=== PATIENT | male | born 1950 | race Caucasian/White ===

== ENCOUNTER 2017-06-12 23:32 | Inpatient (IN) ==
--- NOTE | 2017-06-12 23:39 | Emergency Department Note ---
Disposition Clinical Impression: Small bowel obstruction Disposition: Admitted As Inpatient Condition: Fair Time of Disposition: 00:38 Abdominal Pain HPI - General Chief Complaint: ED Abdominal Pain Stated Complaint: Small Bowel Obstruction Time Seen by Provider: 06/12/17 23:38 Source: patient, EMS Mode of arrival: EMS Nursing Notes Reviewed: Yes Vital Signs Reviewed: Yes - History of Present Illness HPI Narrative: 66-year-old male history of former smoker hypertension hyperlipidemia no previous abdominal surgeries presents with constipation and abdominal pain and distention for the last 2 days. Patient states his last bowel movement was 2 days ago patient states he had to have some pain he went to the [place] emergency department with a, small bowel instruction on his CAT scan physician transferred him to [facility] for surgical evaluation. An NG tube was placed that about 600 mL of bilious abdominal fluid. he denies hematochezia or melena. He states his pain is currently a 5 out of 10 for last few hours after the NG tube was placed. Pt Subjective Complaint: abdominal pain Onset (ago): day(s) (2) Consistency: intermittent Location: diffuse Pain Severity: moderate Pain Scale: 5 Quality: aching Radiation: none Improves with: nothing Worsens with: eating Associated symptoms: Reports: nausea, vomiting, constipation - Related Data Home Medications Medication Instructions Recorded Confirmed Aspirin [Lo-Dose Aspirin EC] 81 mg PO DAILY 09/14/16 06/12/17 Cholecalciferol (D-3) [Vitamin D] 4,000 unit PO DAILY 09/14/16 06/12/17 Lisinopril-HCTZ 20-12.5 [Prinzide 1 each PO DAILY 09/14/16 06/12/17 20-12.5] Lovastatin 40 mg PO HS 09/14/16 06/12/17 Methotrexate [Otrexup] 2.5 mg PO Q1W 09/14/16 06/12/17 amLODIPine [Norvasc] 10 mg PO DAILY 09/14/16 06/12/17 Allergies Allergy/AdvReac Type Severity Reaction Status Date / Time ranitidine [From Zantac] Allergy Hives Verified 06/12/17 23:39 Pneumococcal Vaccine AdvReac Fever Verified 06/12/17 23:39 All systems ED: reviewed and negative except as stated. Review of Systems: As Per HPI Constitutional: Denies: fever, chills Eyes: Denies: eye pain ENT ED: Denies: ear pain Cardiovascular: Denies: chest pain Respiratory: Denies: cough, dyspnea Gastrointestinal: Reports: abdominal pain, nausea, vomiting. Denies: diarrhea, hematemesis, melena, hematochezia Genitourinary: Denies: urgency, dysuria Musculoskeletal: Denies: back pain Integumentary: Denies: rash Neurological: Denies: headache Abdominal Pain PMH - Past Medical History Medical history: Reports: arthritis, COPD, hyperlipidemia, hypertension Male Surgical History: Reports: no surgical history Psychiatric history: Reports: no psych history - Social History Smoking status: Former smoker Alcohol use: Reports: none Drug use: Reports: none Physical Exam Constitutional: Middle-aged male with NG tube in place bilious contents the bedside vacuuming container vital signs stable Eyes: PERRLA, sclera anicteric ENT & Mouth: MM dry Neck: normal inspection, neck is supple Resp: CTA bilaterally, no resp distress CV: RRR, no m/g/r GI: normal inspection, soft, moderate distention, tenderness to palpation diffusely with no rigidity or guarding Neuro: A&O3, CNII-XII grossly intact, ESCOBAR Skin: on limited exam, skin intact with no rashes or lesions Course Course Narrative: 66-year-old male with small bowel obstruction transferred from [facility] I did call the general surgeon Dr. Reddy who agreed with management after reviewing CT scan finding lab results and exam the patient will continue NG decompression admission to medical service with surgical consult. - Consultations Consultation #1: Consult to Dr. Reddy will evaluate the patient agrees with management at this time will review CT scan continue NG decompression and by mouth hospitalist admission per surgeon recommendations after discussing the CT scan findings Vital Signs Temperature 98.0 F 06/12/17 23:39 Pulse Rate 92 06/12/17 23:39 Respiratory Rate 16 06/12/17 23:39 Blood Pressure 128/88 06/12/17 23:39 O2 Sat by Pulse Oximetry 93 06/12/17 23:39 Temperature 98.0 F 06/12/17 23:39 Pulse Rate 102 06/13/17 00:30 Respiratory Rate 18 06/13/17 00:30 Blood Pressure 139/91 06/13/17 00:30 O2 Sat by Pulse Oximetry 93 06/13/17 00:30 Oxygen Delivery Oxygen Delivery Room Air Abdominal Pain - Differential Diagnosis Differential Diagnosis: Likely: abdominal pain non-specific, diverticulitis, diverticulosis, ischemic bowel - Medical Records Medical records reviewed: Yes I reviewed the patient's medical records. - Lab Data Lab results reviewed: Yes I reviewed the patient's lab results. - Radiology Data Radiology results reviewed: Yes I reviewed the patient's radiology results. Attestation Statement - Attestation Attestation: I, Zhang Bridges MD, personally evaluated this patient and discussed their management with the resident physician. I reviewed the resident's note and agree with the documented findings, medical decision making, and plan of care. This patient was transferred from [facility] emergency department with a small bowel obstruction. Patient complained of nausea and vomiting and diarrhea that started on . He was seen at another facility Tuesday morning and given medication for nausea. The diarrhea has resolved and he has had no bowel movement for the past 2 days. Yesterday he developed increased abdominal distention and increased abdominal pain. Also developed vomiting. Workup tonight at [facility] emergency department revealed a small bowel obstruction in the central abdomen with concern for an internal hernia. An NG tube was placed and his symptoms have improved. On examination patient is a well-developed well-nourished male in no acute distress. He is alert and oriented 3. There is no cyanosis or diaphoresis. Breath sounds are clear and equal bilaterally. Heart regular rate and rhythm. Abdomen is distended with mild diffuse tenderness. Bowel sounds absent. The surgeon professor of education, Dr. Arnold, was consulted and recommended admission by the hospitalist and he will see the patient in the hospital. The hospitalist, Dr. Way, was consulted and accepted admission of the patient.
[2017-06-13] MEDS ORDERED: Ondansetron 4 MG/2 ML VIAL IVP PRN (03:08)
[2017-06-13] MEDS ORDERED: Naloxone 0.4 MG/ML INJ IVP PRN (03:27)
[2017-06-13] MEDS ORDERED: Potassium Chloride 20 MEQ, Lidocaine 1% 2 ML in D5% in Water 250 ML IVPB ONE (03:36)
[2017-06-13] MEDS ORDERED: Ipratropium/Albuterol Neb 3 ML IH PRN (03:39)
--- NOTE | 2017-06-13 03:45 | Internal Med History&Physical ---
Date of Encounter: 06/13/17 Time of Encounter: 03:00 Assessment and Plan (1) Hypertension Current visit: Yes Status: Acute Hold home medications because of nothing by mouth. Hydralazine IV as needed Qualifiers: Hypertension type: essential hypertension Qualified Code(s): I10 - Essential (primary) hypertension (2) COPD (chronic obstructive pulmonary disease) Current visit: Yes Status: Acute Patient currently has no wheezing. Place the DuoNeb when necessary. Oxygen as needed Qualifiers: COPD type: emphysema Emphysema type: unspecified Qualified Code(s): J43.9 - Emphysema, unspecified (3) Hypokalemia Current visit: Yes Status: Acute We will give IV potassium supplements (4) DVT prophylaxis Current visit: Yes Status: Acute EPCD. No heparin in case the patient needs surgery (5) Small bowel obstruction Current visit: Yes Status: Acute Probably due to internal hernia. Patient is still passing gas, consider partial small bowel obstruction. - Continue nothing by mouth, IV fluid, NG tube with intermittent low pressure suction for decompression. - Zofran IV when necessary for nausea - Close monitor patient - Surgical consult on case. Internal Medicine - H&P: HPI Chief complaint: Nausea and vomiting and abdominal distention Admitted From: Home Plans for Post Hospital Care: Home History of present illness: Mr. Ravi is a 66 year old male with history of hypertension, COPD, rheumatoid arthritis, presented to ER for nausea vomiting and abdominal distention. Patient said she has nausea vomiting and diarrhea since Tuesday. Patient went to urgent care and was treated with medication for nausea. Since yesterday, diarrhea stopped, patient still has nausea and vomiting, and has increased abdominal distention. There is no blood in the vomiting. Patient has no bowel movement since Tuesday. Still passing gas. In [facility] ER, abdominal is CT shows small bowel obstruction and possible internal hernia. Patient denies previous history of abdominal surgery. Patient was transferred to our ER for further management. Surgical consult was called by ER, surgical consult has reviewed the CT scan and recommend NG tube decompression and close monitoring. Patient was admitted for further management. Past Med Surg Social Fam HX - Past Medical History Medical history: arthritis, COPD, hyperlipidemia, hypertension Psychiatric history: no psych history - Past Surgical History Surgical History: no surgical history - Social History Smoking Status: Former smoker Smokeless Tobacco Status: No Alcohol use: none Drug use: none - Family History Mother History Unknown: Yes Internal Medicine - H&P: Meds Aspirin [Lo-Dose Aspirin EC] 81 mg PO DAILY 09/14/16 [History] Cholecalciferol (D-3) [Vitamin D] 4,000 unit PO DAILY 09/14/16 [History] Lisinopril-HCTZ 20-12.5 [Prinzide 20-12.5] 1 each PO DAILY 09/14/16 [History] Lovastatin 40 mg PO HS 09/14/16 [History] Methotrexate [Otrexup] 2.5 mg PO Q1W 09/14/16 [History] amLODIPine [Norvasc] 10 mg PO DAILY 09/14/16 [History] Metoprolol [Lopressor] 25 mg PO DAILY 06/13/17 [History] 3 Allergy/AdvReac Type Severity Reaction Status Date / Time ranitidine [From Zantac] Allergy Hives Verified 06/12/17 23:39 Pneumococcal Vaccine AdvReac Fever Verified 06/12/17 23:39 All Systems PM: A 10-system review of systems was performed and is negative for pertinent findings except as documented above in the HPI. - Constitutional Vitals: Temp Pulse Resp BP Pulse Ox 97.8 F 90 16 125/84 93 06/13/17 00:44 06/13/17 00:44 06/13/17 00:44 06/13/17 00:44 06/13/17 00:44 General appearance: Present: A&O X 3, no acute distress, answers questions appropriately - Head Head exam: Present: atraumatic, normocephalic - Eye Eye exam: Present: PERRL, conjuntiva pink, sclera anicteric Pupils: Present: PERRL - Neck Neck exam general surgery: Present: supple, trachea midline. Absent: lymphadenopathy - Respiratory Respiratory exam: Present: CTAB. Absent: accessory muscle use, rales, rhonchi, wheezes - Cardiovascular Cardiovascular exam: Present: RRR, +S1, +S2. Absent: diastolic murmur, gallop, rubs, systolic murmur - GI/Abdominal GI/Abdominal exam: Present: distended, normal bowel sounds, soft, tenderness ( Mild tenderness on the right lower quadrant without guarding or rebound), no peritoneal signs - Extremities Exam Extremities exam: Present: warm, radial pulses palpable and symmetrical. Absent : calf tenderness, cyanotic, pedal edema - Neurological Exam Neurological exam: Present: CN II-XII intact, oriented X3, no focal deficits. Absent: pronater drift, facial droop, speech deficit - Skin Skin exam: Present: dry, intact
[2017-06-13] MEDS: 0.9 % Sodium Chloride 1,000 ML IVC SCH ×2 (04:32→21:43)
--- NOTE | 2017-06-13 09:22 | General Surgery Consult Note ---
<Shaina Damon - Last Filed: 06/13/17 09:18> Date of Encounter: 06/13/17 Time of Encounter: 09:18 Assessment and Plan (1) Small bowel obstruction Current Visit: Yes Status: Acute CT abd/pelvis without contrast reviewed with Dr. Arnold (detailed below). Adhesions unlikely cause of SBO as patient has not had any surgeries. Pt reports colonoscopy in the last 5 years with polyps (records not available for review a this time, but are requested) and denies history of reported obstruction, changes in bowel habits other than as previously described, or S/S of G.I. bleed. Abdominal discomfort remains in lateral epigastrum and RLQ. Etiology obstruction vs internal hernia (no contrast was given for CT). His WBC is 12.7 and without bandemia. Plan: -abdominal x-ray for NG tube placement, if placement is ok, may give gastrograffin through NG for SBFT -continue supportive care and discomfort management -Chloraseptic at bedside so patiently self administer -NPO (may have 1/2 small cup of ice Q8H pending imaging results) -Further recommendations pending CT abdomen Pelvis w/o contrast CT abd/pelvis without contrast 06/12/2017: GI/Bowel: There multiple loops of central small bowel which show dilation with fluid and gas ; some feculent material is also present suggesting stasis. Associated engorgement of the mesenteric vasculature is well as a small amount of interloop fluid and mesenteric edema are evident. The dilated loops of small bowel show a concentric configuration. IMPRESSION: Moderate dilation of central small bowel loops with relative decompression of the distal ileum most compatible with small bowel obstruction. There is associated small amount of fluid and mesenteric edema. Given the somewhat concentric configuration of the dilated small bowel loops, internal hernia could be considered. Cholelithiasis. History of Present Illness Consult date: 06/12/17 (Dr. Yvon Arnold) Reason for consult: abdominal pain Requesting physician: Julisa Mejia History of present illness: Dave is a 66-year-old male with a past medical history of hypertension, HLP, rheumatoid arthritis, former smoker, COPD/emphysema, adrenal adenoma, and a lung nodule. He denies an abdominal surgical history. He presented on 06/12/2017 from [facility] with complaints of abdominal distention, abdominal pain, and constipation for the past 2 days. He underwent a CT of the abdomen and pelvis without contrast which noted moderate dilation of the central small bowel loops with relative decompression of the distal ileum most compatible with the small bowel obstruction. Given the concentration of the dilated small bowel loops and internal hernia is considered. His white blood cell count is mildly elevated at 12.3 and is without bandemia. An NG tube was placed and noted 600 ML's of bilious fluid return. Mr. Ravi reports feelings of nausea, vomiting, and diarrhea that started on . The diarrhea started as having stool noted then transitioned to watery liquid and no stool noted. After this change the nausea and vomiting worsened, he began having abdominal discomfort and bloating for which he presented to the urgent care. He was recommended to go to the emergency department at [place] and was subsequently transferred to us. He states since the NG tube was placed he does feel a little bit of abdominal discomfort improvement , improvement in the nausea, and has not vomited. He continues to endorse significant abdominal distention and discomfort in the mid-abdomen and right abdomen. He denies fever or chills. He denies headache, dizziness, generalized weakness. He denies chest pain or shortness of breath. He endorses nausea and vomiting that was green and in large amounts. He denies black, bloody, or tarry stool. He denies coffee ground or Romeo red-blooded emesis. He further denies a personal or family history of colon cancer. Past Med Surg Social Fam HX - Past Medical History Source: patient, old records reviewed Medical history: arthritis, COPD, hyperlipidemia, hypertension Psychiatric history: no psych history - Past Surgical History Surgical History: no surgical history - Social History Smoking Status: Former smoker Smokeless Tobacco Status: No Alcohol use: none Drug use: none - Family History Mother History Unknown: Yes Medications and Allergies Aspirin [Lo-Dose Aspirin EC] 81 mg PO DAILY 09/14/16 [History] Cholecalciferol (D-3) [Vitamin D] 4,000 unit PO DAILY 09/14/16 [History] Lovastatin 40 mg PO HS 09/14/16 [History] Methotrexate [Otrexup] 10 mg PO QWEEK 09/14/16 [History] amLODIPine [Norvasc] 10 mg PO DAILY 09/14/16 [History] Folic Acid 1 mg PO DAILY 06/13/17 [History] Metoprolol Succinate [Toprol Xl] 25 mg PO DAILY 06/13/17 [History] Umeclidinium Brm/Vilanterol Tr [Anoro Ellipta 62.5-25 Mcg INH] 1 puff IH DAILY 06/13/17 [History] 3 Allergy/AdvReac Type Severity Reaction Status Date / Time ranitidine [From Zantac] Allergy Hives Verified 06/12/17 23:39 Pneumococcal Vaccine AdvReac Fever Verified 06/12/17 23:39 Review of Systems All systems PM: reviewed and no additional remarkable complaints except as stated All systems PM: The remainder of the systems were reviewed and are negative General Surgery Exam Initial Vital Signs Temp Pulse Resp BP Pulse Ox 98.0 F 92 16 128/88 93 06/12/17 23:39 06/12/17 23:39 06/12/17 23:39 06/12/17 23:39 06/12/17 23:39 - General physical appearance well developed, well nourished, no distress, moderate pain - Eyes normal ocular movement - ENT atraumatic, normocephalic - Neck trachea midline, no venous distension - Respiratory normal expansion, normal respiratory effort, clear to auscultation - Cardiovascular Cardiovascular exam: Present: RRR, 15, 16 - Abdomen Abdomen general surgery: Present: tympanic, distended, tender. Absent: bowel sounds present (ABSENT) Abdominal Tenderness: Present: epigastic, RUQ, RLQ Hernia: Present: none - Integumentary Integumentary general surgery: Present: warm and dry, no abnormal pigmentation - Neurologic Present: CN 2-12 grossly intact, normal coordination, normal sensation - Musculoskeletal Present: normal gait, normal posture - Psychiatric Psychiatric general surgery: Present: A&Ox3, appropriate, oriented to person, oriented to place, oriented to time, speech is normal, memory intact Exam Initial Vital Signs Temp Pulse Resp BP Pulse Ox 98.0 F 92 16 128/88 93 06/12/17 23:39 06/12/17 23:39 06/12/17 23:39 06/12/17 23:39 06/12/17 23:39 Results - Labs All other labs normal. - Imaging CT scan - abdomen: report reviewed CT scan - pelvis: report reviewed Consult Discharge Plan - Plan Referrals: Marco Camejo DO [Primary Care Provider] - <Yvon Arnold - Last Filed: 06/13/17 16:47> Date of Encounter: 06/13/17 Review of Systems All systems PM: The remainder of the systems were reviewed and are negative General Surgery Exam Initial Vital Signs Temp Pulse Resp BP Pulse Ox 98.0 F 92 16 128/88 93 06/12/17 23:39 06/12/17 23:39 06/12/17 23:39 06/12/17 23:39 06/12/17 23:39 Exam Initial Vital Signs Temp Pulse Resp BP Pulse Ox 98.0 F 92 16 128/88 93 06/12/17 23:39 06/12/17 23:39 06/12/17 23:39 06/12/17 23:39 06/12/17 23:39 Results - Labs 06/13/17 08:39 06/13/17 08:39 Abnormal lab results Monocytes # 1.6 K/mcL (0.0-1.3) H 06/13/17 08:39 Glucose 127 mg/dL (70-105) H 06/13/17 08:39 Calcium 8.4 mg/dL (8.6-10.3) L 06/13/17 08:39 Diabetes panel 06/13/17 Range/Units 08:39 Sodium 137 (136-145) mEq/L Potassium 3.7 (3.5-5.1) mEq/L Chloride 100 (98-107) mEq/L Carbon Dioxide 27 (23-29) mEq/L BUN 22 (8-23) mg/dL Creatinine 0.89 (0.70-1.30) mg/dL Glucose 127 H (70-105) mg/dL Calcium 8.4 L (8.6-10.3) mg/dL Calcium panel 06/13/17 Range/Units 08:39 Calcium 8.4 L (8.6-10.3) mg/dL Pituitary panel 06/13/17 Range/Units 08:39 Sodium 137 (136-145) mEq/L Potassium 3.7 (3.5-5.1) mEq/L Chloride 100 (98-107) mEq/L Carbon Dioxide 27 (23-29) mEq/L BUN 22 (8-23) mg/dL Creatinine 0.89 (0.70-1.30) mg/dL Glucose 127 H (70-105) mg/dL Calcium 8.4 L (8.6-10.3) mg/dL Adrenal panel 06/13/17 Range/Units 08:39 Sodium 137 (136-145) mEq/L Potassium 3.7 (3.5-5.1) mEq/L Chloride 100 (98-107) mEq/L Carbon Dioxide 27 (23-29) mEq/L BUN 22 (8-23) mg/dL Creatinine 0.89 (0.70-1.30) mg/dL Glucose 127 H (70-105) mg/dL Calcium 8.4 L (8.6-10.3) mg/dL All other labs normal. - Attending Attestation I have personally seen and examined the patient. I have reviewed pertinent labs , imaging, progress notes, including this one. I agree with the above assessment and plan and wish to include the following... 66M no history of surgeries, no hernias appreciated, no history inflammatory or infectious processes who presents with an SBO; contrast studies demonstrate no progression of constrast past what looks like jejunum. no peritoneal on exam; discussed with patient the need for surgery; will plan for diag lap with poss ex lap tomorrow; patient is already risk stratified by cardiology
[2017-06-13] MEDS ORDERED: Chloraseptic Spray 177 ML BOTTLE MM PRN (09:35)
[2017-06-13] MEDS ORDERED: Ketorolac 15 MG/ML VIAL IVP PRN (09:36)
[2017-06-13] MEDS ORDERED: *HR* Promethazine 25 MG/ML VIAL IVP PRN (09:38)
[2017-06-13 09:44] LABS: BUN/Creatinine Ratio 25 (6-26); Blood Urea Nitrogen 22 mg/dL (8-23); Calcium 8.4 mg/dL (8.6-10.3); Carbon Dioxide 27 mEq/L (23-29); Chloride 100 mEq/L (98-107); Glucose 127 mg/dL (70-105); Magnesium 2.2 mg/dL (1.6-2.6); Osmolality,Calculated 289 (280-300); Potassium 3.7 mEq/L (3.5-5.1); Sodium 137 mEq/L (136-145); eGFR For African Americans > 60 (> 60); eGFR For Non-African Americans > 60 (> 60)
[2017-06-13 10:31] LABS: Basophils % 0.2 %; Hematocrit 48.6 % (37.5-50.1); Hemoglobin 16.9 g/dL (12.9-16.9); Immature Granulocytes % 0.3 % (0-4); Lymphocytes # 1.8 K/mcL (0.6-4.6); Mean Corpuscular HGB Conc 34.8 g/dL (31.6-35.5); Mean Corpuscular Hemoglobin 31.5 pg (28.0-33.3); Mean Corpuscular Volume 90.7 fL (83.0-100.0); Mean Platelet Volume 10.6 fL (9.4-12.4); Monocytes # 1.6 K/mcL (0.0-1.3); Neutrophils # 6.5 K/mcL (1.6-8.9); Platelet Count 249 K/mcL (140-400); Red Blood Count 5.36 M/mcL (4.19-5.50); Red Cell Distribution Width 12.9 % (11.5-14.5); Segmented Neutrophils % 65.5 %
[2017-06-13] MEDS: Ondansetron 4 MG/2 ML VIAL IVP SCH ×3 (13:25→21:41)
[2017-06-13] MEDS: Acetaminophen IV 500 MG/50 ML INFUS..BTL IVPB SCH ×3 (13:25→21:42)
--- NOTE | 2017-06-13 14:36 | Event Note ---
Date of Encounter: 06/13/17 Time of Encounter: 14:34 Patient actively vomiting despite Zofran and Phenergan administration. His abdomen is more distended than this a.m. NG tube was returned to suction with immediate return of 1 L bilious material. Patient states nausea and abdominal discomfort is resolved. He did return his NG to clamp for his final picture at 3 PM today. Spoke with Mahnaz Petty CNP who will provide cardiovascular risk stratification in light of possibility of surgical intervention. Reviewed above with Dr. Arnold.
--- NOTE | 2017-06-13 14:47 | Internal Med Progress Note ---
Date of Encounter: 06/13/17 Time of Encounter: 14:44 - Assessment and plan (1) Small bowel obstruction Current Visit: Yes Status: Acute Assessment and plan: Patient is in the midst of a small bowel follow-through. Discussed with surgical service and depending on amount of flow through will depend on the surgical plan. If completely blocked will proceed with intervention today. If not will proceed with surgery tomorrow. Defer to surgical service view timing and necessity NG tube replaced the suction as patient was vomiting and very nauseated with it clamped. Remains nothing by mouth and continue IV fluids as ordered. (2) Preop cardiovascular exam Current Visit: Yes Status: Acute Assessment and plan: *Evaluate the patient for preop cardiac risk stratification. Patient with 0 Alex revised cardiac risk factors. No known CAD or prior ischemic evaluation/ workup. At home can carry out activities of daily living greater than 4 mets We will obtain an EKG and chest x-ray, if unremarkable okay to proceed to surgery with a cardiac risk assessment score of 0.4% per the Alex revised cardiac risk index (3) COPD (chronic obstructive pulmonary disease) Current Visit: Yes Status: Chronic Assessment and plan: Patient with no wheezing. Continue duo nebs when necessary. Oxygen as needed. Patient is currently on room air Qualifiers: COPD type: emphysema Emphysema type: unspecified Qualified Code(s): J43.9 - Emphysema, unspecified (4) Hypertension Current Visit: Yes Status: Acute Assessment and plan: Blood pressure is stable Qualifiers: Hypertension type: essential hypertension Qualified Code(s): I10 - Essential (primary) hypertension (5) Hypokalemia Current Visit: Yes Status: Resolved Assessment and plan: replaced and normalized (6) DVT prophylaxis Current Visit: Yes Status: Acute Assessment and plan: SCDs, no anticoagulation secondary to possible surgery - Subjective Interval history: Patient is sitting up in the bed with his NG tube clamped. He is uncomfortable and has become nauseated. He is in the midst of a small bowel follow-through and has one more film for completion. He denies chest pain, shortness of breath , fever, chills, diarrhea or constipation. He does have some left-sided abdominal pain that radiates across his lower abdomen. He states he has never had a cardiac ischemic evaluation including heart catheter or stress test. He states before this illness he was able to perform pretty much any activity that he wanted to at home. Sometimes he is limited by his COPD be slows down a bit and he is able to complete the activity. He states he is a pretty healthy alea. - Constitutional Vitals: Temp Pulse Resp BP Pulse Ox 97.8 F 100 16 107/74 93 06/13/17 07:20 06/13/17 07:20 06/13/17 07:20 06/13/17 07:20 06/13/17 07:20 General appearance: Present: cooperative, mild distress, A&O X 3, pleasant, no acute distress, answers questions appropriately - Head Head exam: Present: atraumatic, normocephalic - Eye Eye exam: Present: PERRL, conjuntiva pink, sclera anicteric Pupils: Present: PERRL - Neck Neck exam general surgery: Present: supple, trachea midline. Absent: lymphadenopathy - Respiratory Respiratory exam: Present: CTAB. Absent: accessory muscle use, rales, rhonchi, wheezes - Cardiovascular Cardiovascular exam: Present: RRR, +S1, +S2. Absent: diastolic murmur, gallop, rubs, systolic murmur - GI/Abdominal GI/Abdominal exam: Present: diminished bowel sounds, firm, tenderness. Absent: distended Additional comments: NG tube is clamped secondary to contrast administered, had been draining a tannish clear liquid. - Extremities Exam Extremities exam: Present: warm, radial pulses palpable and symmetrical. Absent : calf tenderness, cyanotic, pedal edema - Neurological Exam Neurological exam: Present: alert, CN II-XII intact, oriented X3, no focal deficits. Absent: pronater drift, facial droop, speech deficit - Skin Skin exam: Present: dry, intact, normal color, warm Internal Medicine: Result - Labs CBC & Chem 7: 06/13/17 08:39 06/13/17 08:39 Labs: Short CBC 06/13/17 Range/Units 08:39 WBC 9.9 (4.3-11.1) K/mcL Hgb 16.9 (12.9-16.9) g/dL Hct 48.6 (37.5-50.1) % Plt Count 249 (140-400) K/mcL Neutrophils # 6.5 (1.6-8.9) K/mcL BMP 06/13/17 08:39 Sodium 137 Potassium 3.7 Chloride 100 Carbon Dioxide 27 BUN 22 Creatinine 0.89 Glucose 127 H Calcium 8.4 L - Impressions Impressions Abdomen X-Ray 06/13/17 09:34 IMPRESSION: Recommend advancing NG tube Findings consistent with bowel obstruction D/ / 06/13/2017 11:03:50 Reddy Rush MD / [facility] Interpreting Provider: Reddy Rush MD Consult Discharge Plan - Plan Referrals: Marco Camejo DO [Primary Care Provider] -
[2017-06-13] MEDS: Pantoprazole 40 MG VIAL IVP SCH (16:43)
--- NOTE | 2017-06-13 21:14 | Anesthesia Evaluation PreOp ---
Date of Encounter: 06/13/17 Time of Encounter: 21:12 - Past History Planned Operation: Expl Lap, possible Small Bowel Resection Cardiac History: HTN (maintained on Lisinopril-Hctz, Norvasc, Metoprolol), Hyperlipidemia (maintained on Lovastatin) Pulmonary History: Former smoker (quit 15yrs ago), COPD (maintained on Anoro Ellipta, Ventolin) LEAD COOK History: Denies Any Significant HX Other Medical History: Hepatic (fatty liver), Other (RA maintained on Methotrexate) Anesthesia History: Past Anesthesia (No prior GA) Alcohol Use: none Drug use: none Medications and Allergies Aspirin [Lo-Dose Aspirin EC] 81 mg PO DAILY 09/14/16 [History] Cholecalciferol (D-3) [Vitamin D] 4,000 unit PO DAILY 09/14/16 [History] Lovastatin 40 mg PO HS 09/14/16 [History] Methotrexate [Otrexup] 10 mg PO QWEEK 09/14/16 [History] amLODIPine [Norvasc] 10 mg PO DAILY 09/14/16 [History] Folic Acid 1 mg PO DAILY 06/13/17 [History] Metoprolol Succinate [Toprol Xl] 25 mg PO DAILY 06/13/17 [History] Umeclidinium Brm/Vilanterol Tr [Anoro Ellipta 62.5-25 Mcg INH] 1 puff IH DAILY 06/13/17 [History] 3 Allergy/AdvReac Type Severity Reaction Status Date / Time ranitidine [From Zantac] Allergy Hives Verified 06/12/17 23:39 Pneumococcal Vaccine AdvReac Fever Verified 06/12/17 23:39 - Meds/Allergy Pre-op Review Medications Reviewed: Yes Allergies Reviewed: Yes Beta Blockers on Current Med List: Yes (Metoprolol) If Beta Blockers taken, Date/Time (Last Dose taken): None this hospitalization Anesthesia Results - Labs 06/13/17 08:39 06/13/17 08:39 Laboratory Results WBC 9.9 K/mcL (4.3-11.1) 06/13/17 08:39 RBC 5.36 M/mcL (4.19-5.50) 06/13/17 08:39 Hgb 16.9 g/dL (12.9-16.9) 06/13/17 08:39 Hct 48.6 % (37.5-50.1) 06/13/17 08:39 MCV 90.7 fL (83.0-100.0) 06/13/17 08:39 MCH 31.5 pg (28.0-33.3) 06/13/17 08:39 MCHC 34.8 g/dL (31.6-35.5) 06/13/17 08:39 RDW 12.9 % (11.5-14.5) 06/13/17 08:39 Plt Count 249 K/mcL (140-400) 06/13/17 08:39 MPV 10.6 fL (9.4-12.4) 06/13/17 08:39 Immature Gran % 0.3 % (0-4) 06/13/17 08:39 Seg Neutrophils % 65.5 % 06/13/17 08:39 Lymphocytes % 18.0 % 06/13/17 08:39 Monocytes % 16.0 % 06/13/17 08:39 Eosinophils % 0.0 % 06/13/17 08:39 Basophils % 0.2 % 06/13/17 08:39 Neutrophils # 6.5 K/mcL (1.6-8.9) 06/13/17 08:39 Lymphocytes # 1.8 K/mcL (0.6-4.6) 06/13/17 08:39 Monocytes # 1.6 K/mcL (0.0-1.3) H 06/13/17 08:39 Eosinophils # 0.0 K/mcL (0.0-0.6) 06/13/17 08:39 Basophils # 0.0 K/mcL (0.0-0.2) 06/13/17 08:39 Sodium 137 mEq/L (136-145) 06/13/17 08:39 Potassium 3.7 mEq/L (3.5-5.1) 06/13/17 08:39 Chloride 100 mEq/L (98-107) 06/13/17 08:39 Carbon Dioxide 27 mEq/L (23-29) 06/13/17 08:39 BUN 22 mg/dL (8-23) 06/13/17 08:39 Creatinine 0.89 mg/dL (0.70-1.30) 06/13/17 08:39 Est GFR ( Amer) > 60 (> 60) 06/13/17 08:39 Est GFR (Non-Af Amer) > 60 (> 60) 06/13/17 08:39 BUN/Creatinine Ratio 25 (6-26) 06/13/17 08:39 Glucose 127 mg/dL (70-105) H 06/13/17 08:39 POC Glucose 128 (58-89) H 06/13/17 19:09 Calculated Osmolality 289 (280-300) 06/13/17 08:39 Calcium 8.4 mg/dL (8.6-10.3) L 06/13/17 08:39 Magnesium 2.2 mg/dL (1.6-2.6) 06/13/17 08:39 Carcinoembryonic Ag 4.3 ng/mL (Less than 5.0) 06/13/17 17:41 Impressions Abdomen X-Ray 06/13/17 09:34 IMPRESSION: Recommend advancing NG tube Findings consistent with bowel obstruction D/ / 06/13/2017 11:03:50 Reddy Rush MD / [email or web address] Interpreting Provider: Reddy Rush MD Chest X-Ray 06/13/17 14:39 IMPRESSION: 1. Shallow inspiration and mild left basilar atelectasis. 2. Tip and side port of the enteric tube likely in the gastric lumen. D/ / Myles Villegas MD / Myles Villegas MD Interpreting Provider: Myles Villegas MD Anesthesia Exam Vital Signs Temp Pulse Resp BP Pulse Ox 06/13/17 19:06 98.5 F 105 16 118/83 92 06/13/17 14:44 97.5 F L 104 15 119/77 93 06/13/17 07:20 97.8 F 100 16 107/74 93 06/13/17 03:52 98.2 F 104 16 117/78 92 06/13/17 00:44 97.8 F 90 16 125/84 93 06/13/17 00:30 102 18 139/91 93 06/12/17 23:39 98.0 F 92 16 128/88 93 Intake and Output 06/13/17 06/13/17 06/13/17 07:59 15:59 23:59 Intake Total 0 / 0 0 / 0 Output Total 750 / 750 1000 / 1000 1100 / 1100 Balance -750 / -750 -1000 / -1000 -1100 / -1100 Intake: Oral 0 / 0 0 / 0 Output: Urine 350 / 350 Gastric Tube Lavage Amount 0 / 0 1000 / 1000 Right Nare 0 / 0 1000 / 1000 Gastric Drainage 400 / 400 1100 / 1100 Other: Meal Lunch NPO Weight 98.566 kg Blood Glucose* 155 128 Patient Weight 06/13/17 23:59 Weight 98.566 kg Height: 5'8" Weight: 217# BMI = 33 NPO (# of Hours): MNoc - HEENT Pupil (Motor): Pupils equal, EOMI Mallampati: II Teeth: Missing, Poor dentition (mulitple cracked & broken pre-molars/molars) Oral Opening: Greater than 3 - LEAD COOK LOC: Oriented LEAD COOK Motor: Normal RUE, Normal LUE, Normal RLE, Normal LLE, Normal Face LEAD COOK Sensory: Normal: RUE, LUE, RLE, LLE, Face - Cardiac Rhythm: Regular Murmur: None - Pulmonary Breath Sounds: bilateral Clear Respiratory Effort: Symmetrical Anesthesia Assess/Plan ASA Score: 3 (HTN, Chol, COPD, Obesity, Small Bowel Obstruction) Modified Marielena Scale for Level of Consciousness: Cooperative, oriented, and tranquil Anesthetic Plan: General Monitoring Plan: Standard Monitors Recovery Plan: PACU Anes Supervising Prov Stmt: Pt seen/evaluated, R&B discussed questions answered and consent obtained. Estelita Grier MD
[2017-06-14] MEDS: Ondansetron 4 MG/2 ML VIAL IVP SCH ×6 (00:02→20:43)
[2017-06-14] MEDS: Acetaminophen IV 500 MG/50 ML INFUS..BTL IVPB SCH ×4 (04:01→20:53)
[2017-06-14 05:49] LABS: Basophils % 0.5 %; Eosinophils % 0.1 %; Hematocrit 46.9 % (37.5-50.1); Hemoglobin 15.9 g/dL (12.9-16.9); Immature Granulocytes % 0.2 % (0-4); Lymphocytes # 2.1 K/mcL (0.6-4.6); Lymphocytes % 24.4 %; Mean Corpuscular HGB Conc 33.9 g/dL (31.6-35.5); Mean Corpuscular Hemoglobin 31.3 pg (28.0-33.3); Mean Corpuscular Volume 92.3 fL (83.0-100.0); Mean Platelet Volume 10.5 fL (9.4-12.4); Monocytes # 1.5 K/mcL (0.0-1.3); Monocytes % 17.4 %; Neutrophils # 4.8 K/mcL (1.6-8.9); Platelet Count 268 K/mcL (140-400); Red Blood Count 5.08 M/mcL (4.19-5.50); Red Cell Distribution Width 12.9 % (11.5-14.5); Segmented Neutrophils % 57.4 %
[2017-06-14 06:07] LABS: BUN/Creatinine Ratio 36 (6-26); Blood Urea Nitrogen 34 mg/dL (8-23); Calcium 8.5 mg/dL (8.6-10.3); Carbon Dioxide 27 mEq/L (23-29); Chloride 104 mEq/L (98-107); Glucose 120 mg/dL (70-105); Osmolality,Calculated 299 (280-300); Potassium 3.3 mEq/L (3.5-5.1); Sodium 140 mEq/L (136-145); eGFR For African Americans > 60 (> 60); eGFR For Non-African Americans > 60 (> 60)
[2017-06-14] MEDS: Pantoprazole 40 MG VIAL IVP SCH ×2 (06:09→16:10)
[2017-06-14] MEDS ORDERED: Potassium Chloride 20 MEQ, Lidocaine 1% 2 ML in D5% in Water 250 ML IVPB ONE (07:01)
--- NOTE | 2017-06-14 10:49 | Internal Med Progress Note ---
Date of Encounter: 06/14/17 Time of Encounter: 10:46 - Assessment and plan (1) DVT prophylaxis Current Visit: Yes Status: Acute Assessment and plan: SCDs, no anticoagulation secondary to possible surgery (2) Hypertension Current Visit: Yes Status: Chronic Assessment and plan: Blood pressure is stable, continue current medications. Resume home medications when Patient is tolerating orally. Qualifiers: Hypertension type: essential hypertension Qualified Code(s): I10 - Essential (primary) hypertension (3) Preop cardiovascular exam Current Visit: Yes Status: Acute Assessment and plan: Patient with 0 Alex revised cardiac risk factors. No known CAD or prior ischemic evaluation/workup. At home can carry out activities of daily living greater than 4 mets CXR unremarkable okay to proceed to surgery with a cardiac risk assessment score of 0.4% per the Alex revised cardiac risk index (4) Small bowel obstruction Current Visit: Yes Status: Acute Assessment and plan: Continue IVF, NG ube, surgery is following continue antibiotics for surgery today (5) COPD (chronic obstructive pulmonary disease) Current Visit: Yes Status: Chronic Assessment and plan: Patient with no wheezing. Continue duo nebs when necessary. Oxygen as needed. Patient is currently on room air Qualifiers: COPD type: emphysema Emphysema type: unspecified Qualified Code(s): J43.9 - Emphysema, unspecified (6) Hypokalemia Current Visit: Yes Status: Acute Assessment and plan: K 3.3 today, replaced , continue to monitor - Subjective Interval history: Seen and evaluated at the bedside with family members. Denies new complaints. He does have a slight sore throat. He is planned for surgery today. - Constitutional Vitals: Temp Pulse Resp BP Pulse Ox 98.4 F 96 18 132/79 94 06/14/17 07:18 06/14/17 07:18 06/14/17 07:18 06/14/17 07:18 06/14/17 07:18 General appearance: Present: cooperative, A&O X 3, pleasant, no acute distress - Head Head exam: Present: atraumatic, normocephalic - Eye Eye exam: Present: PERRL, conjuntiva pink, sclera anicteric Pupils: Present: PERRL - Neck Neck exam general surgery: Present: supple, trachea midline. Absent: lymphadenopathy Additional comments: NG tube draining greenish fluid. - Respiratory Respiratory exam: Present: CTAB. Absent: accessory muscle use, rales, rhonchi, wheezes - Cardiovascular Cardiovascular exam: Present: RRR, +S1, +S2. Absent: diastolic murmur, gallop, rubs, systolic murmur - GI/Abdominal GI/Abdominal exam: Present: distended, hypoactive bowel sounds, tenderness, no peritoneal signs - Extremities Exam Extremities exam: Present: warm, radial pulses palpable and symmetrical. Absent : calf tenderness, cyanotic, pedal edema - Neurological Exam Neurological exam: Present: alert, CN II-XII intact, oriented X3, no focal deficits. Absent: pronater drift, facial droop, speech deficit - Skin Skin exam: Present: dry, intact Internal Medicine: Result - Labs CBC & Chem 7: 06/14/17 05:06 06/14/17 05:06 Labs: Short CBC 06/14/17 Range/Units 05:06 WBC 8.4 (4.3-11.1) K/mcL Hgb 15.9 (12.9-16.9) g/dL Hct 46.9 (37.5-50.1) % Plt Count 268 (140-400) K/mcL Neutrophils # 4.8 (1.6-8.9) K/mcL BMP 06/14/17 05:06 Sodium 140 Potassium 3.3 L Chloride 104 Carbon Dioxide 27 BUN 34 H Creatinine 0.94 Glucose 120 H Calcium 8.5 L - Impressions Impressions Abdomen X-Ray 06/13/17 09:34 IMPRESSION: Recommend advancing NG tube Findings consistent with bowel obstruction D/ / 06/13/2017 11:03:50 Reddy Rush MD / [facility] Interpreting Provider: Reddy Rush MD Chest X-Ray 06/13/17 14:39 IMPRESSION: 1. Shallow inspiration and mild left basilar atelectasis. 2. Tip and side port of the enteric tube likely in the gastric lumen. D/ / Myles Villegas MD / Myles Villegas MD Interpreting Provider: Myles Villegas MD Consult Discharge Plan - Plan Referrals: Marco Camejo DO [Primary Care Provider] -
--- NOTE | 2017-06-14 17:28 | Electrocardiograph Report ---
[place] [id number] Test Date: 2017-06-14 Pat Name: Dave Ravi Department: 115 Room: 3A44 Gender: M Shuttle Inspector: [id number] 1950 Requested By: Shaina Damon Order Number: [id number] Reading MD: Connie Mcqueen Measurements Intervals [place] Rate: 95 P: -1 [place]: 143 QRS: -30 QRSD: 105 T: -4 QT: 370 QTc: 422 Interpretive Statements SINUS RHYTHM WITH OCCASIONAL VENTRICULAR PREMATURE COMPLEXES POSSIBLE ANTERIOR MYOCARDIAL INFARCTION, PROBABLY OLD Electronically Signed On 06-14-2017 17:26:25 EST by Connie Mcqueen
[2017-06-14] MEDS: D5% in 0.45% NACL w KCl 20 MEQ/1,000 ML MLS IVC SCH (20:42)
[2017-06-15] MEDS: Ondansetron 4 MG/2 ML VIAL IVP SCH ×3 (00:06→08:12)
[2017-06-15] MEDS: Acetaminophen IV 500 MG/50 ML INFUS..BTL IVPB SCH ×2 (03:33→08:14)
[2017-06-15 05:30] LABS: Basophils # 0.1 K/mcL (0.0-0.2); Basophils % 0.7 %; Eosinophils # 0.2 K/mcL (0.0-0.6); Eosinophils % 2.1 %; Hematocrit 41.3 % (37.5-50.1); Hemoglobin 13.9 g/dL (12.9-16.9); Immature Granulocytes % 0.9 % (0-4); Lymphocytes # 1.9 K/mcL (0.6-4.6); Lymphocytes % 25.4 %; Mean Corpuscular HGB Conc 33.7 g/dL (31.6-35.5); Mean Corpuscular Hemoglobin 31.2 pg (28.0-33.3); Mean Corpuscular Volume 92.6 fL (83.0-100.0); Monocytes # 1.1 K/mcL (0.0-1.3); Monocytes % 14.8 %; Neutrophils # 4.2 K/mcL (1.6-8.9); Platelet Count 247 K/mcL (140-400); Red Blood Count 4.46 M/mcL (4.19-5.50); Segmented Neutrophils % 56.1 %
[2017-06-15 05:51] LABS: BUN/Creatinine Ratio 26 (6-26); Blood Urea Nitrogen 23 mg/dL (8-23); Calcium 7.9 mg/dL (8.6-10.3); Carbon Dioxide 24 mEq/L (23-29); Chloride 107 mEq/L (98-107); Glucose 113 mg/dL (70-105); Osmolality,Calculated 294 (280-300); Potassium 3.4 mEq/L (3.5-5.1); Sodium 140 mEq/L (136-145); eGFR For African Americans > 60 (> 60); eGFR For Non-African Americans > 60 (> 60)
[2017-06-15] MEDS: Pantoprazole 40 MG VIAL IVP SCH ×2 (06:22→17:30)
[2017-06-15] MEDS: D5% in 0.45% NACL w KCl 20 MEQ/1,000 ML MLS IVC SCH (06:22)
--- NOTE | 2017-06-15 09:46 | Internal Med Progress Note ---
Date of Encounter: 06/15/17 Time of Encounter: 09:45 - Assessment and plan (1) DVT prophylaxis Current Visit: Yes Status: Acute Assessment and plan: SCDs, resume SQ heparin, ambulate tid (2) Hypertension Current Visit: Yes Status: Chronic Assessment and plan: Blood pressure is stable, resume home meds Qualifiers: Hypertension type: essential hypertension Qualified Code(s): I10 - Essential (primary) hypertension (3) Preop cardiovascular exam Current Visit: Yes Status: Acute Assessment and plan: Patient with 0 Alex revised cardiac risk factors. No known CAD or prior ischemic evaluation/workup. At home can carry out activities of daily living greater than 4 mets CXR unremarkable okay to proceed to surgery with a cardiac risk assessment score of 0.4% per the Alex revised cardiac risk index Surgery on hold for now (4) Small bowel obstruction Current Visit: Yes Status: Acute Assessment and plan: Continue IVF, Improving D/C IVF continue antibiotics per surgery, SBFU shows improvement, patient is being fed (5) COPD (chronic obstructive pulmonary disease) Current Visit: Yes Status: Chronic Assessment and plan: Patient with no wheezing. Continue duo nebs when necessary. Oxygen as needed. Patient is currently on room air Qualifiers: COPD type: emphysema Emphysema type: unspecified Qualified Code(s): J43.9 - Emphysema, unspecified (6) Hypokalemia Current Visit: Yes Status: Acute Assessment and plan: K 3.4 today, replaced , continue to monitor - Subjective Interval history: Seen and evaluated at the bedside with family members. Denies new complaints. SBFU shows SBO is partial Repeat Abd CT also noted-partial SBO Surgery has started patient on clear He has no new complains - Constitutional Vitals: Temp Pulse Resp BP Pulse Ox 99.3 F 88 18 114/75 93 06/15/17 07:00 06/15/17 07:00 06/15/17 07:00 06/15/17 07:00 06/15/17 07:00 General appearance: Present: cooperative, A&O X 3, pleasant, no acute distress - Head Head exam: Present: atraumatic, normocephalic - Eye Eye exam: Present: PERRL, conjuntiva pink, sclera anicteric Pupils: Present: PERRL - Neck Neck exam general surgery: Present: supple, trachea midline. Absent: lymphadenopathy - Respiratory Respiratory exam: Present: CTAB. Absent: accessory muscle use, rales, rhonchi, wheezes - Cardiovascular Cardiovascular exam: Present: RRR, +S1, +S2. Absent: diastolic murmur, gallop, rubs, systolic murmur - GI/Abdominal GI/Abdominal exam: Present: normal bowel sounds, soft, no peritoneal signs. Absent: distended, tenderness - Extremities Exam Extremities exam: Present: warm, radial pulses palpable and symmetrical. Absent : calf tenderness, cyanotic, pedal edema - Neurological Exam Neurological exam: Present: alert, CN II-XII intact, oriented X3, no focal deficits. Absent: pronater drift, facial droop, speech deficit - Skin Skin exam: Present: dry, intact Internal Medicine: Result - Labs CBC & Chem 7: 06/15/17 05:09 06/15/17 05:09 Labs: Short CBC 06/15/17 Range/Units 05:09 WBC 7.6 (4.3-11.1) K/mcL Hgb 13.9 D (12.9-16.9) g/dL Hct 41.3 (37.5-50.1) % Plt Count 247 (140-400) K/mcL Neutrophils # 4.2 (1.6-8.9) K/mcL BMP 06/15/17 05:09 Sodium 140 Potassium 3.4 L Chloride 107 Carbon Dioxide 24 BUN 23 Creatinine 0.89 Glucose 113 H Calcium 7.9 L - Impressions Impressions Abdomen X-Ray 06/13/17 09:34 IMPRESSION: Recommend advancing NG tube Findings consistent with bowel obstruction D/ / 06/13/2017 11:03:50 Reddy Rush MD / [facility] Interpreting Provider: Reddy Rush MD Small Bowel X-Ray 06/13/17 09:45 IMPRESSION: Findings consistent with high-grade proximal small bowel obstruction. D/ / 06/15/2017 07:34:55 Wali Mays MD / [facility] Interpreting Provider: Wali Mays MD Chest/Abdomen X-ray 03/06/18 14:08 IMPRESSION: No acute cardiopulmonary process. Diffuse small bowel dilatation and relatively decompressed colon. Contrast from recent small bowel follow-through is noted throughout the colon. Findings suggest ongoing, incomplete small bowel obstruction. D/ / 06/14/2017 15:21:24 Edita Stephens MD / [email or web address] Interpreting Provider: Edita Stephens MD Abdomen/Pelvis CT 06/14/17 16:15 IMPRESSION: Improved mild small bowel dilatation with relative decompression of the distal ileum and colon. Findings are consistent with improved, but persistent partial small bowel obstruction. Cholelithiasis without evidence of cholecystitis. Nonobstructing left renal calculus. D/ / 06/14/2017 18:01:17 [facility] Inter[facility]ting Provider: Edita Stephens MD Consult Discharge Plan - Plan Referrals: Marco Camejo DO [Primary Care Provider] -
--- NOTE | 2017-06-15 09:48 | General Surgery Progress Note ---
<Isabel Anthony Noemi - Last Filed: 06/15/17 09:50> Date of Encounter: 06/15/17 Time of Encounter: 09:45 - Assessment and Plan (1) Small bowel obstruction Current Visit: Yes Status: Acute 66-year-old male with partial SBO with interval improvement as demonstrated on CT of the abdomen and pelvis on 06/14/2017. -Unclear etiology as no hernias appreciated, no history of inflammatoryor infectious bowel disease, no history of abdominal surgery. -Nausea and vomiting improving. -CEA normal. -We will start clear liquid diet, if tolerates, we will reconsider need for operative intervention. (2) Preop cardiovascular exam Current Visit: Yes Status: Acute Cardiac risk assessment score 0.4% per the Alex revised cardiac risk index. (3) COPD (chronic obstructive pulmonary disease) Current Visit: Yes Status: Chronic Management per primary care. -Currently on 2 L nasal cannula. Qualifiers: COPD type: emphysema Emphysema type: unspecified Qualified Code(s): J43.9 - Emphysema, unspecified (4) DVT prophylaxis Current Visit: Yes Status: Acute EPCDs -Protonix GI prophylaxis. Subjective Patient reports: no new complaints, feels better, pain is less, voiding w/o difficulty, diarrhea (Denies further rectal bleeding), afebrile Objective Vital Signs - Last 8 Hours Temp Pulse Resp BP Pulse Ox 06/15/17 07:00 99.3 F 88 18 114/75 93 06/15/17 04:20 99.3 F 81 18 118/67 92 Intake and Output 06/14/17 06/15/17 06/15/17 23:59 07:59 15:59 Intake Total 50 / 50 1300 / 1300 Output Total 0 / 0 200 / 200 Balance 50 / 50 1100 / 1100 Intake: IV Fluids 50 / 50 1000 / 1000 KCl 20mEq IN D5%-0.45 NACL 20 1000 / 1000 meq In 1,000 ml @ 100 mls/hr IVC .Q10H AP Rx#:[id number] Ofirmev 1,000 mg/100 ml 500 mg 50 / 50 In 50 ml @ 200 mls/hr IVPB Q6H AP Rx#:[id number] Oral 0 / 0 300 / 300 Output: Urine 0 / 0 200 / 200 Other: Meal ice Stool Size Moderate Stool Consistency liquid Stool Color Brown # Bowel Movements 1 Weight 92.9 kg Blood Glucose* 116 119 Patient Weight 06/15/17 23:59 Weight 92.9 kg - General physical appearance well developed, well nourished, no distress - Respiratory normal expansion, normal respiratory effort, clear to auscultation - Cardiovascular Cardiovascular exam: Present: RRR, murmurs (flow murmur) - Abdomen Abdomen: Present: bowel sounds present, soft, non tender - Neurologic CN 2-12 grossly intact - Musculoskeletal normal gait - Psychiatric oriented to time, oriented to person, oriented to place, speech is normal, memory intact - Labs 06/15/17 05:09 06/15/17 05:09 Diabetes panel 06/15/17 Range/Units 05:09 Sodium 140 (136-145) mEq/L Potassium 3.4 L (3.5-5.1) mEq/L Chloride 107 (98-107) mEq/L Carbon Dioxide 24 (23-29) mEq/L BUN 23 (8-23) mg/dL Creatinine 0.89 (0.70-1.30) mg/dL Glucose 113 H (70-105) mg/dL Calcium 7.9 L (8.6-10.3) mg/dL Calcium panel 06/15/17 Range/Units 05:09 Calcium 7.9 L (8.6-10.3) mg/dL Pituitary panel 06/15/17 Range/Units 05:09 Sodium 140 (136-145) mEq/L Potassium 3.4 L (3.5-5.1) mEq/L Chloride 107 (98-107) mEq/L Carbon Dioxide 24 (23-29) mEq/L BUN 23 (8-23) mg/dL Creatinine 0.89 (0.70-1.30) mg/dL Glucose 113 H (70-105) mg/dL Calcium 7.9 L (8.6-10.3) mg/dL Adrenal panel 06/15/17 Range/Units 05:09 Sodium 140 (136-145) mEq/L Potassium 3.4 L (3.5-5.1) mEq/L Chloride 107 (98-107) mEq/L Carbon Dioxide 24 (23-29) mEq/L BUN 23 (8-23) mg/dL Creatinine 0.89 (0.70-1.30) mg/dL Glucose 113 H (70-105) mg/dL Calcium 7.9 L (8.6-10.3) mg/dL Consult Discharge Plan - Plan Referrals: Marco Camejo DO [Primary Care Provider] - <Yvon Arnold - Last Filed: 06/15/17 13:51> Date of Encounter: 06/15/17 Objective Vital Signs - Last 8 Hours Temp Pulse Resp BP Pulse Ox 06/15/17 11:17 99.5 F 88 18 99/49 93 06/15/17 07:00 99.3 F 88 18 114/75 93 Intake and Output 06/14/17 06/15/17 06/15/17 23:59 07:59 15:59 Intake Total 50 / 50 1300 / 1300 560 / 560 Output Total 0 / 0 200 / 200 0 / 0 Balance 50 / 50 1100 / 1100 560 / 560 Intake: IV Fluids 50 / 50 1000 / 1000 KCl 20mEq IN D5%-0.45 NACL 20 1000 / 1000 meq In 1,000 ml @ 100 mls/hr IVC .Q10H AP Rx#:[id number] Ofirmev 1,000 mg/100 ml 500 mg 50 / 50 In 50 ml @ 200 mls/hr IVPB Q6H AP Rx#:[id number] Oral 0 / 0 300 / 300 560 / 560 Output: Urine 0 / 0 200 / 200 0 / 0 Other: Meal ice Stool Size Moderate Stool Consistency liquid Stool Color Brown # Bowel Movements 1 Weight 92.9 kg Blood Glucose* 116 119 Patient Weight 06/15/17 23:59 Weight 92.9 kg - Labs 06/15/17 05:09 06/15/17 05:09 Diabetes panel 06/15/17 Range/Units 05:09 Sodium 140 (136-145) mEq/L Potassium 3.4 L (3.5-5.1) mEq/L Chloride 107 (98-107) mEq/L Carbon Dioxide 24 (23-29) mEq/L BUN 23 (8-23) mg/dL Creatinine 0.89 (0.70-1.30) mg/dL Glucose 113 H (70-105) mg/dL Calcium 7.9 L (8.6-10.3) mg/dL Calcium panel 06/15/17 Range/Units 05:09 Calcium 7.9 L (8.6-10.3) mg/dL Pituitary panel 06/15/17 Range/Units 05:09 Sodium 140 (136-145) mEq/L Potassium 3.4 L (3.5-5.1) mEq/L Chloride 107 (98-107) mEq/L Carbon Dioxide 24 (23-29) mEq/L BUN 23 (8-23) mg/dL Creatinine 0.89 (0.70-1.30) mg/dL Glucose 113 H (70-105) mg/dL Calcium 7.9 L (8.6-10.3) mg/dL Adrenal panel 06/15/17 Range/Units 05:09 Sodium 140 (136-145) mEq/L Potassium 3.4 L (3.5-5.1) mEq/L Chloride 107 (98-107) mEq/L Carbon Dioxide 24 (23-29) mEq/L BUN 23 (8-23) mg/dL Creatinine 0.89 (0.70-1.30) mg/dL Glucose 113 H (70-105) mg/dL Calcium 7.9 L (8.6-10.3) mg/dL - Attending Attestation I have personally seen and examined the patient. I have reviewed pertinent labs , imaging, progress notes, including this one. I agree with the above assessment and plan and wish to include the following... 66M who presented with SBO despite not having surgeries; started having bowel function after UGI series with small bowel follow through; imaging confirms passage of contrast into the colon; put on clears this AM; he tolerating diet; advance diet as tolerated; will reassess in AM; if he continues to do well will plan for discharge tomorrow;
[2017-06-15] MEDS ORDERED: Ondansetron 4 MG/2 ML VIAL IVP PRN (13:47)
[2017-06-15] MEDS: *HR* Heparin 5,000 UNIT/ML VIAL SQ SCH (20:58)
[2017-06-16] MEDS: *HR* Heparin 5,000 UNIT/ML VIAL SQ SCH (05:34)
[2017-06-16] MEDS: Pantoprazole 40 MG VIAL IVP SCH (05:34)
[2017-06-16 05:47] LABS: Basophils # 0.1 K/mcL (0.0-0.2); Eosinophils # 0.2 K/mcL (0.0-0.6); Hematocrit 41.3 % (37.5-50.1); Hemoglobin 13.6 g/dL (12.9-16.9); Immature Granulocytes % 1.4 % (0-4); Lymphocytes # 2.8 K/mcL (0.6-4.6); Lymphocytes % 28.3 %; Mean Corpuscular HGB Conc 32.9 g/dL (31.6-35.5); Mean Corpuscular Hemoglobin 30.8 pg (28.0-33.3); Mean Corpuscular Volume 93.4 fL (83.0-100.0); Mean Platelet Volume 10.1 fL (9.4-12.4); Monocytes % 10.4 %; Neutrophils # 5.7 K/mcL (1.6-8.9); Platelet Count 257 K/mcL (140-400); Red Blood Count 4.42 M/mcL (4.19-5.50); Red Cell Distribution Width 12.6 % (11.5-14.5); Segmented Neutrophils % 56.9 %
[2017-06-16 05:48] LABS: BUN/Creatinine Ratio 14 (6-26); Blood Urea Nitrogen 14 mg/dL (8-23); Calcium 8.1 mg/dL (8.6-10.3); Carbon Dioxide 24 mEq/L (23-29); Chloride 107 mEq/L (98-107); Glucose 89 mg/dL (70-105); Osmolality,Calculated 282 (280-300); Potassium 4.1 mEq/L (3.5-5.1); Sodium 136 mEq/L (136-145); eGFR For African Americans > 60 (> 60); eGFR For Non-African Americans > 60 (> 60)
[2017-06-16] MEDS ORDERED: Patient Taking Own Medication 1 EACH IH SCH (09:00)
[2017-06-16] MEDS ORDERED: Metoprolol XL (24 HR) Succ 25 MG TAB.ER.24H PO SCH (09:00)
[2017-06-16] MEDS ORDERED: amLODIPine 5 MG TABLET PO SCH (09:00)
[2017-06-16] MEDS ORDERED: Aspirin Enteric Coated 81 MG Tablet PO SCH (09:00)
[2017-06-16] MEDS ORDERED: Folic Acid 1 MG TABLET PO SCH (09:00)
[2017-06-16] MEDS ORDERED: Cholecalciferol (D-3) 1,000 UNIT TABLET PO SCH (09:00)
[2017-06-16 10:27] VITALS: BP 111/72
--- NOTE | 2017-06-16 10:48 | General Surgery Progress Note ---
Date of Encounter: 06/16/17 Time of Encounter: 10:48 - Assessment and Plan (1) Small bowel obstruction Current Visit: Yes Status: Acute Resolved. Patient states he wishes to follow-up with his previous Osvaldo Mijares ( Dr. Littlejohn) at [facility]. He states he is ready to go home and that the hospital doctor has been and to tell him that he can leave. He is located discharge from a surgical perspective as he is tolerating a regular diet, having bowel movements, and reports resolution of symptoms. Thank you for allowing us to participate in Mr. Ravi care. Subjective Patient reports: no new complaints, feels better, voiding w/o difficulty, flatus , bowel movement, afebrile Objective Vital Signs - Last 8 Hours Temp Pulse Resp BP Pulse Ox 06/16/17 10:22 99.0 F 89 14 111/72 93 06/16/17 06:56 98.9 F 86 14 120/80 95 06/16/17 03:20 98.5 F 89 17 120/69 93 Intake and Output 06/15/17 06/16/17 06/16/17 23:59 07:59 15:59 Intake Total 0 / 0 500 / 500 960 / 960 Output Total 0 / 0 150 / 150 150 / 150 Balance 0 / 0 350 / 350 810 / 810 Intake: Oral 0 / 0 500 / 500 960 / 960 Output: Urine 0 / 0 150 / 150 150 / 150 Other: Meal Breakfast Percent of Meal Consumed 100% Stool Size Moderate Stool Consistency liquid Stool Color Brown # Voids 2 # Bowel Movements 1 Weight 92.5 kg Patient Weight 06/16/17 23:59 Weight 92.5 kg - General physical appearance no distress, other (Up in room. States he's ready to leave.) - Eyes normal ocular movement - ENT normal nares, normal mucosa - Neck Neck exam: no venous distension - Respiratory normal expansion, normal respiratory effort, clear to auscultation - Cardiovascular Cardiovascular exam: Present: RRR - Abdomen Abdomen: Present: bowel sounds present, soft, non tender Hernia: none - Integumentary no abnormal pigmentation - Neurologic normal sensation - Musculoskeletal normal gait, normal posture - Psychiatric oriented to time, oriented to person, oriented to place, speech is normal - Labs 06/16/17 04:43 06/16/17 04:43 Diabetes panel 06/16/17 Range/Units 04:43 Sodium 136 (136-145) mEq/L Potassium 4.1 (3.5-5.1) mEq/L Chloride 107 (98-107) mEq/L Carbon Dioxide 24 (23-29) mEq/L BUN 14 (8-23) mg/dL Creatinine 0.97 (0.70-1.30) mg/dL Glucose 89 (70-105) mg/dL Calcium 8.1 L (8.6-10.3) mg/dL Calcium panel 06/16/17 Range/Units 04:43 Calcium 8.1 L (8.6-10.3) mg/dL Pituitary panel 06/16/17 Range/Units 04:43 Sodium 136 (136-145) mEq/L Potassium 4.1 (3.5-5.1) mEq/L Chloride 107 (98-107) mEq/L Carbon Dioxide 24 (23-29) mEq/L BUN 14 (8-23) mg/dL Creatinine 0.97 (0.70-1.30) mg/dL Glucose 89 (70-105) mg/dL Calcium 8.1 L (8.6-10.3) mg/dL Adrenal panel 06/16/17 Range/Units 04:43 Sodium 136 (136-145) mEq/L Potassium 4.1 (3.5-5.1) mEq/L Chloride 107 (98-107) mEq/L Carbon Dioxide 24 (23-29) mEq/L BUN 14 (8-23) mg/dL Creatinine 0.97 (0.70-1.30) mg/dL Glucose 89 (70-105) mg/dL Calcium 8.1 L (8.6-10.3) mg/dL Consult Discharge Plan - Plan Referrals: Marco Camejo DO [Primary Care Provider] -
--- NOTE | 2017-06-16 11:48 | Discharge Summary ---
Orders not resulted at time of discharge: Pending orders 06/16/17 10:46 XR abdomen 2V [XR] Stat Date of Encounter: 06/16/17 Time of Encounter: 11:47 - Discharge Diagnosis (1) Small bowel obstruction Priority: Primary Status: Resolved (2) DVT prophylaxis Priority: Primary Status: Resolved (3) Hypertension Priority: Secondary Status: Chronic Qualifiers: Hypertension type: essential hypertension Qualified Code(s): I10 - Essential (primary) hypertension (4) Preop cardiovascular exam Priority: Primary Status: Resolved (5) COPD (chronic obstructive pulmonary disease) Priority: Secondary Status: Chronic Qualifiers: COPD type: emphysema Emphysema type: unspecified Qualified Code(s): J43.9 - Emphysema, unspecified (6) Hypokalemia Priority: Primary Status: Resolved Hospital course: Mr. Ravi is a 66 year old male with PMH of COPD, HTN who was admitted for small bowel obstruction following complains of nausea, vomiting, abdominal distension and abdominal pain and constipation. He was started on IVF and NG tube was placed for bowel rest and drainage. He had never had prior surgery. Unclear etiology as no hernias appreciated, no history of inflammatory or infectious bowel disease.Colonoscopy records received from [facility] 08/[address] Littlejohn noted polyps in the sigmoid and proximal a sending:. Diverticulosis in the sigmoid colon. Internal and external hemorrhoids. Final pathology noted no dysplasia in the proximal ascending colon and hyperplastic polyps in the sigmoid colon. Repeat SBF Xray showed partial SBO. Patient started having BM and was started on clear liquid diets by surgery His abdominal pain, nausea an vomiting has also improved His diet was advanced and tolerated. The patient is ambulatory, all his symptomsresolved. He was seen and evaluated at the bedside this morning with family, he denies any new complaints he was able to empty history and has been having regular formed bowel movement. He stable to be discharged home. Follow- up with PCP and surgery. Other chronic medical conditions have been stable, continue home medications. Discharge discussed with: patient, family, nurse, social work - Time Spent with Patient Total time spent providing and/or coordinating discharge services: Greater than 30 minutes - Discharge Medications Home Medications: Aspirin [Lo-Dose Aspirin EC] 81 mg PO DAILY 09/14/16 [History] Cholecalciferol (D-3) [Vitamin D] 4,000 unit PO DAILY 06/06/17 [History] Lovastatin 40 mg PO HS 09/14/16 [History] Methotrexate [Otrexup] 10 mg PO QWEEK 09/14/16 [History] amLODIPine [Norvasc] 10 mg PO DAILY 09/14/16 [History] Folic Acid 1 mg PO DAILY 06/13/17 [History] Metoprolol Succinate [Toprol Xl] 25 mg PO DAILY 06/13/17 [History] Umeclidinium Brm/Vilanterol Tr [Anoro Ellipta 62.5-25 Mcg INH] 1 puff IH DAILY 06/13/17 [History] Allergies/Adverse Reactions: 3 Allergy/AdvReac Type Severity Reaction Status Date / Time ranitidine [From Zantac] Allergy Hives Verified 06/12/17 23:39 Pneumococcal Vaccine AdvReac Fever Verified 06/12/17 23:39 Date of admission: 06/13/17 05:41 Primary care physician: Marco Camejo Discharging clinician: Edmond Nath Anticipated date of discharge: 06/16/17 - Constitutional Vitals: Temp Pulse Resp BP Pulse Ox 99.0 F 89 14 111/72 93 06/16/17 10:22 06/16/17 10:22 06/16/17 10:22 06/16/17 10:22 06/16/17 10:22 General appearance: Present: cooperative, A&O X 3, pleasant, no acute distress - Head Head exam: Present: atraumatic, normocephalic - Eye Eye exam: Present: PERRL, conjuntiva pink, sclera anicteric Pupils: Present: PERRL - Neck Neck exam general surgery: Present: supple, trachea midline. Absent: lymphadenopathy - Respiratory Respiratory exam: Present: CTAB. Absent: accessory muscle use, rales, rhonchi, wheezes - Cardiovascular Cardiovascular exam: Present: RRR, +S1, +S2. Absent: diastolic murmur, gallop, rubs, systolic murmur - GI/Abdominal GI/Abdominal exam: Present: normal bowel sounds, soft, no peritoneal signs. Absent: distended, tenderness - Extremities Exam Extremities exam: Present: warm, radial pulses palpable and symmetrical. Absent : calf tenderness, cyanotic, pedal edema - Neurological Exam Neurological exam: Present: alert, CN II-XII intact, oriented X3, no focal deficits. Absent: pronater drift, facial droop, speech deficit - Skin Skin exam: Present: dry, intact - Patient Status Disposition: Home, Self-Care Condition: Good Functional capacity at discharge: independent ambulation Overall status at discharge: patient is back to baseline - Discharge Instructions Follow Up With: Marco Camejo DO [Primary Care Provider] - Forms: Work/School Release - Diet and Activity Activity: resume usual activities as tolerated Diet: advance to your usual diet
== END 2017-06-16 12:48 | disposition home or self-care (01) | DRG 390 ==
LOC: EMEROO 23:32 → 3BNU 23:32 → SUATTDRO 06-13 05:41 → 3ANU 06-13 07:50
PROVIDERS: ADMIT Internal Medicine; ATTEND Internal Medicine

== ENCOUNTER 2018-12-21 08:13 | Inpatient (IN) ==
[2018-12-21] MEDS ORDERED: *HR* FentaNYL (PF) 100 MCG/2 ML VIAL ONE (08:19)
[2018-12-21] MEDS ORDERED: *HR* Propofol 200 MG/20 ML VIAL IVP ONE (08:19)
[2018-12-21] MEDS ORDERED: Dexamethasone 4 MG/ML VIAL ONE (08:26)
[2018-12-21] MEDS ORDERED: *HR* Rocuronium Bromide 50 MG/5 ML VIAL ONE ×2 (08:26→12:13)
[2018-12-21] MEDS ORDERED: *HR* Succinylcholine 200 MG/10 ML VIAL IVP ONE (08:26)
[2018-12-21] MEDS ORDERED: Ondansetron 4 MG/2 ML VIAL ONE (08:26)
[2018-12-21] MEDS ORDERED: Lidocaine -MPF 2% 2 ML VIAL ONE (08:26)
[2018-12-21] MEDS ORDERED: CeFAZolin Syr 2,000MG/20 ML 2,000 MG/20 ML SYRINGE IVPB ONE (08:35)
[2018-12-21] MEDS ORDERED: Albuterol 2.5 MG/3 ML NEBULIZER IH ONE ×2 (08:35→08:55)
--- NOTE | 2018-12-21 08:41 | Anesthesia Evaluation PreOp ---
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 HX Other Medical History: Hepatic (fatty liver), Other (RA on methotrexate has held for 6 days) Anesthesia History: No Prior Anesthetic Complications, Past Anesthesia Alcohol Use: none Drug use: none Medications and Allergies Aspirin [Lo-Dose Aspirin EC] 81 mg PO DAILY 09/14/16 [History] Cholecalciferol (D-3) [Vitamin D] 4,000 unit PO DAILY 09/14/16 [History] Lovastatin 40 mg PO HS 09/14/16 [History] Methotrexate [Otrexup] 10 mg PO QWEEK 09/14/16 [History] amLODIPine [Norvasc] 10 mg PO DAILY 09/14/16 [History] Folic Acid 1 mg PO DAILY 06/13/17 [History] Metoprolol Succinate [Toprol Xl] 25 mg PO DAILY 06/13/17 [History] Umeclidinium Brm/Vilanterol Tr [Anoro Ellipta 62.5-25 Mcg INH] 1 puff IH DAILY 06/13/17 [History] Allergy/AdvReac Type Severity Reaction Status Date / Time ranitidine [From Zantac] Allergy Hives Verified 12/21/18 08:47 - Meds/Allergy Pre-op Review Medications Reviewed: Yes Allergies Reviewed: Yes Beta Blockers on Current Med List: No Anesthesia Results - Labs Laboratory Tests 12/19/18 12/19/18 09:17 09:17 WBC 7.5 Hgb 14.0 Hct 41.8 Plt Count 218 Sodium 140 Potassium 3.8 Chloride 107 Carbon Dioxide 26 BUN 16 Creatinine 0.92 Est GFR (Non-Af Amer) > 60 - Imaging EKG: report reviewed (SINUS BRADYCARDIA BORDERLINE LEFT AXIS DEVIATION) Additional studies: 10/2018 CT/CT chest wo con IMPRESSION: 1. No acute intrapulmonary findings. 2. Interval increase in size and now more solid appearance of a 14 x 10 mm now part solid nodule within the right lung apex. This is concerning for developing pulmonary malignancy, and suggest further characterization with a PET-CT and/or tissue sampling. There is a stable 10 x 5 mm ground-glass nodule within the left upper lobe. 3. Two new small subcentimeter nodules within the lingula and right lower lobe, the larger measuring 6 mm within the lingula. These will require long-term follow-up pending further workup of the patient's right apical nodule. 4. Stable right adrenal adenoma. 5. Stable bilateral renal cysts. 6. Cholelithiasis. 12/2018 PFT INTERPRETATION: Adequate for Interpretation Spirometry shows moderate airway restrictive disease in the pre-bronchodilator trial and FEV1 is reversible and FEV1 is normal in post-bronchodilator 2.64 L, 84%. Following Bronchodilator, there is significant improvement in FVC by 21%. Following Bronchodilator, there is significant improvement in FEV1 by 20%. MVV is decreased. Lung Volumes are normal. Diffusion Capacity is normal. Flow Volume Loop: Normal in post-bronchodilator. Anesthesia Exam Vital Signs/O2 Sat/Glucose, Most Recent Temp Pulse Resp BP Pulse Ox 97.8 F 45 18 125/76 96 12/21/18 08:48 12/21/18 08:48 12/21/18 08:48 12/21/18 08:48 12/21/18 08:48 Weight: 96 kg NPO (# of Hours): > 8 hr - HEENT Pupil (Motor): Pupils equal Mallampati: II Teeth: Normal Oral Opening: Greater than 3 - LITHARGE SUPERVISOR LOC: Oriented LITHARGE SUPERVISOR Motor: Normal RUE, Normal LUE, Normal RLE, Normal LLE, Normal Face LITHARGE SUPERVISOR Sensory: Normal: RUE, LUE, RLE, LLE, Face - Cardiac Rhythm: Regular Murmur: None - Pulmonary Breath Sounds: bilateral Clear Respiratory Effort: Symmetrical Anesthesia Assess/Plan ASA Score: 3 Level of consciousness: Cooperative, Oriented Anesthetic Plan: General Monitoring Plan: Standard Monitors Recovery Plan: PACU
[2018-12-21] MEDS ORDERED: Ringers Solution, Lactated 1,000 ML IVC SCH (08:45)
[2018-12-21] MEDS ORDERED: Acetaminophen IV 1,000 MG/100 ML INFUS..BTL IVPB ONE (08:54)
[2018-12-21] MEDS ORDERED: *HR* Labetalol 20 MG/4 ML SYRINGE IVP PRN (08:55)
[2018-12-21] MEDS ORDERED: *HR* HYDROmorphone (PF) 1 MG/ML SYRINGE IVP PRN (08:55)
[2018-12-21] MEDS ORDERED: *HR* Promethazine 25 MG/ML VIAL IVP PRN (08:55)
[2018-12-21] MEDS ORDERED: Ondansetron 4 MG/2 ML VIAL IVP ONE (08:55)
[2018-12-21] MEDS ORDERED: *HR* OxyCODONE Immed Rel 5 MG TABLET PO PRN (08:55)
--- NOTE | 2018-12-21 10:06 | History & Physical Report ---
Date of Encounter: 12/21/18 Time of Encounter: 10:05 24 Hour HP Update - Instructions Instructions: If the History and Physical is less than 30 days old and was completed prior to A.M. admission and or procedure and has NOT been updated on calendar day of procedure please complete this update prior to performing procedure. - Update Patient reports changes in Medical Condition: No Changes in examination, assessment, or condition: No Changes in Medication: No Preop tests/diagnostics Reviewed: Yes Pre-Op MRSA Screen: Negative Surgery Remains Indicated: Yes Consent for Planned Operative Procedure(s) Verified: Yes - Pre-Operative Checklist Preoperative Checklist Indicated: Yes Prophylactic Antibiotic Ordered: Yes Home Medications Include Beta Simone: Yes Beta Simone Taken Today (Day of Surgery): Yes Beta Simone Taken Yesterday (Day Prior to Surgery): Yes Is VTE Prophylaxis Indicated?: Yes
[2018-12-21] MEDS ORDERED: Ketorolac 30 MG/ML VIAL ONE ×2 (10:57→13:47)
[2018-12-21] MEDS ORDERED: EPHEDrine 50 MG/ML VIAL ONE (10:58)
[2018-12-21] MEDS ORDERED: *HR* HYDROMORPHONE 2 MG/ML VIAL ONE (12:34)
--- NOTE | 2018-12-21 12:57 | Operative Note ---
Date of procedure: 12/21/18 Pre-op diagnosis: c34.11 Post-op diagnosis: same Procedure: staging bronchoscopy, right robotic wedge, upper lobecotmy, lymph node dissection Anesthesia: GETA Local Anesthetics: 0.5% Sensorcaine HCL SubQ (cc) Surgeon: Marco Devine Was there an speech language pathology assistant present: No Estimated blood loss (cc): 50 Specimen: wedge and lobe, nodes 7.8.9 Condition: stable Disposition: PACU Procedure in Detail: Patient was brought to the operating room and placed on the operating table in the supine position. After undergoing general anesthesia sequential compressive devices on bilateral lower extremities and perioperative antibiotics on board, staging bronchoscopy demonstrated normal mucosa, branching pattern, and no and no bronchial masses or compression of the trachea dipika mainstem lobar or segmental bronchi. Patient was placed on the operating room table in the left lateral decubitus position with care to pad all pressure points prepped and draped in the usual sterile fashion thoracoscopy ports were placed in the da [place] robot was docked. Generous wedge resection of the right upper lobe demonstrated adenocarcinoma in this enlarging groundglass semisolid area. Because of the groundglass opacity demonstrating adenocarcinoma, 8 patient right upper lobectomy was performed dividing the vein artery fissure and bronchus. The inferior pulmonary ligament was mobilized. We did not appreciate lymph nodes at stations 4 however we did not appreciate lymph nodes from and removed from stations 78 and 9. Paravertebral nerve blocks were performed as tube placed through the most anterior thoracoscopy incision and secured in place with a #2 Vicryl suture. The remaining incisions were closed with 0 Vicryl and 4-0 Monocryl subcuticular stitches with dressings consisting of Steri-Strips and gauze. Patient was extubated and taken to the recovery room breathing spontaneously and hemodynamically stable.
--- NOTE | 2018-12-21 13:16 | Anesthesia Evaluation Post Op ---
Date of Encounter: 12/21/18 Time of Encounter: 13:15 - Vital Signs Vital Signs: Vital Signs/O2 Sat/Glucose, Most Recent Temp Pulse Resp BP Pulse Ox 97.4 F L 80 14 123/81 94 12/21/18 12:48 12/21/18 13:08 12/21/18 13:08 12/21/18 13:08 12/21/18 13:08 - Lungs Lungs: Clear Ascult./Percussion - Airway Airway: Non-obstructed - Cardiovascular Regular Rate - Mental Status Mental Status: Alert & Oriented, Answers Appropriately - Pain Pain Scale: 0 - Nausea Vomiting Nausea Vomiting: Not Present - Hydration Hydration: Tolerates oral liquids - Discharge PostOp Status: Transfer Patient to floor
[2018-12-21] MEDS ORDERED: Naloxone 0.4 MG/ML INJ IVP PRN (14:15)
[2018-12-21] MEDS ORDERED: Ondansetron 4 MG/2 ML VIAL IVP PRN (14:15)
[2018-12-21] MEDS: 0.9 % Sodium Chloride 1,000 ML IVC SCH (15:40)
[2018-12-21] MEDS: *HR* Heparin 5,000 UNIT/ML VIAL SQ SCH ×2 (15:41→21:15)
[2018-12-21] MEDS: Ipratropium/Albuterol Neb 3 ML IH SCH ×2 (16:56→20:15)
[2018-12-21] MEDS: Gabapentin 300 MG CAPSULE PO SCH ×2 (18:02→21:11)
[2018-12-21] MEDS: Ketorolac 15 MG/ML VIAL IVP SCH ×2 (18:03→23:55)
[2018-12-21] MEDS: Sennosides/Docusate Sodium TABLET PO SCH (21:11)
[2018-12-21] MEDS: *HR* HYDROcodone/Acet 5/325 mg TABLET PO PRN (21:42)
[2018-12-22] MEDS: Ipratropium/Albuterol Neb 3 ML IH SCH ×7 (00:10→23:31)
[2018-12-22 02:11] LABS: Hematocrit 39.2 % (37.5-50.1); Hemoglobin 13.2 g/dL (12.9-16.9); Mean Corpuscular HGB Conc 33.7 g/dL (31.6-35.5); Mean Corpuscular Hemoglobin 32.2 pg (28.0-33.3); Mean Corpuscular Volume 95.6 fL (83.0-100.0); Mean Platelet Volume 10.9 fL (9.4-12.4); Platelet Count 205 K/mcL (140-400); Red Cell Distribution Width 12.8 % (11.5-14.5)
[2018-12-22 02:12] LABS: White Blood Count 13.3 K/mcL (4.3-11.1)
[2018-12-22 02:32] LABS: % Iron Saturation 9 % (20-55); BUN/Creatinine Ratio 19 (6-26); Blood Urea Nitrogen 19 mg/dL (8-23); Calcium 8.3 mg/dL (8.6-10.3); Carbon Dioxide 21 mEq/L (23-29); Chloride 103 mEq/L (98-107); Glucose 172 mg/dL (70-105); Iron 26 mcg/dL (65-175); Magnesium 1.7 mg/dL (1.6-2.6); Osmolality,Calculated 290 (280-300); Potassium 3.3 mEq/L (3.5-5.1); Sodium 137 mEq/L (136-145); Transferrin 208 mg/dL (203-362); eGFR For African Americans > 60 (> 60); eGFR For Non-African Americans > 60 (> 60)
[2018-12-22] MEDS: 0.9 % Sodium Chloride 1,000 ML IVC SCH (03:47)
[2018-12-22] MEDS: *HR* HYDROcodone/Acet 5/325 mg TABLET PO PRN (03:51)
[2018-12-22] MEDS: *HR* Heparin 5,000 UNIT/ML VIAL SQ SCH ×3 (06:23→20:08)
[2018-12-22] MEDS: Ketorolac 15 MG/ML VIAL IVP SCH ×3 (06:24→17:26)
[2018-12-22] MEDS: Sennosides/Docusate Sodium TABLET PO SCH ×2 (08:33→20:07)
[2018-12-22] MEDS: Aspirin Enteric Coated 81 MG Tablet PO SCH (08:33)
[2018-12-22] MEDS: Metoprolol XL (24 HR) Succ 25 MG TAB.ER.24H PO SCH (08:33)
[2018-12-22] MEDS: amLODIPine 5 MG TABLET PO SCH (08:33)
[2018-12-22] MEDS: Gabapentin 300 MG CAPSULE PO SCH ×3 (08:34→20:08)
[2018-12-22] MEDS ORDERED: Iron Sucrose Complex 400 MG in 0.9 % Sodium Chloride 250 ML IVPB ONE (09:32)
--- NOTE | 2018-12-22 09:51 | Cardiothoracic Progress Note ---
Date of Encounter: 12/22/18 Time of Encounter: 09:49 - Assessment and plan (1) Malignant neoplasm of upper lobe, right bronchus or lung Current Visit: Yes Status: Acute The assessment and plan as outlined above was discussed with the patient and/or family members who expressed understanding and agreement. All questions were answered. no changes. replace k and mg (2) Hypertension Current Visit: No Status: Chronic The assessment and plan as outlined above was discussed with the patient and/or family members who expressed understanding and agreement. All questions were answered. stable Qualifiers: Hypertension type: essential hypertension (3) Hypokalemia Current Visit: No Status: Chronic The assessment and plan as outlined above was discussed with the patient and/or family members who expressed understanding and agreement. All questions were answered. Vital Signs, Last 4 Hours Temp Pulse Resp BP Pulse Ox 12/22/18 08:51 92 16 96 12/22/18 08:00 98.5 F 97 16 115/70 96 12/22/18 07:42 16 96 Oxgyen Flow Rate Oxygen Flow Rate (LPM) 2 Clinical Data, last 8 Hours Output, Chest Tube Drainage 0 Amount [Right] Output, Chest Tube Drainage 5 Amount [Right] Weight 12/20/18 12/21/18 12/22/18 23:59 23:59 23:59 Weight 96.162 kg 97.9 kg - Physical Examination General: Conversant, No Apparent Distress, Well developed, Well nourished HEENT: Atraumatic, Normocephaly Cardiac: Reg Rate and Rhythm, Normal S1 and S2 Incision: No signs of infection, Dry/intact dressing Chest tubes: Minimal drainage, Air leak Lungs: Normal Breath Sounds Neuro: Alert and responsive, No focal deficits noted, Cranial nerves intact, Motor nerves intact - Labs 12/22/18 01:28 12/22/18 01:28 Lab Results, Last 24 hours 12/22/18 12/22/18 01:28 01:28 WBC 13.3 H D Hgb 13.2 Hct 39.2 Plt Count 205 Sodium 137 Potassium 3.3 L Chloride 103 Carbon Dioxide 21 L BUN 19 Creatinine 0.99 Glucose 172 H Calcium 8.3 L Magnesium 1.7 - Imaging Chest Xray: image reviewed Consult Discharge Plan - Plan Referrals: Marco Devine MD [Partnered Physician] - Marco Camejo DO [Primary Care Provider] -
[2018-12-23] MEDS: Ketorolac 15 MG/ML VIAL IVP SCH ×4 (00:23→17:51)
[2018-12-23] MEDS: Ipratropium/Albuterol Neb 3 ML IH SCH ×5 (03:56→20:47)
[2018-12-23 05:58] LABS: BUN/Creatinine Ratio 20 (6-26); Blood Urea Nitrogen 18 mg/dL (8-23); Calcium 8.3 mg/dL (8.6-10.3); Carbon Dioxide 23 mEq/L (23-29); Chloride 109 mEq/L (98-107); Glucose 134 mg/dL (70-105); Osmolality,Calculated 298 (280-300); Potassium 3.9 mEq/L (3.5-5.1); Sodium 142 mEq/L (136-145); eGFR For African Americans > 60 (> 60); eGFR For Non-African Americans > 60 (> 60)
[2018-12-23] MEDS: *HR* Heparin 5,000 UNIT/ML VIAL SQ SCH ×3 (06:30→20:55)
[2018-12-23] MEDS: Metoprolol XL (24 HR) Succ 25 MG TAB.ER.24H PO SCH (08:28)
[2018-12-23] MEDS: Aspirin Enteric Coated 81 MG Tablet PO SCH (08:28)
[2018-12-23] MEDS: Sennosides/Docusate Sodium TABLET PO SCH ×2 (08:29→20:55)
[2018-12-23] MEDS: amLODIPine 5 MG TABLET PO SCH (08:29)
[2018-12-23] MEDS: Gabapentin 300 MG CAPSULE PO SCH ×3 (08:29→20:55)
[2018-12-23] MEDS ORDERED: Iron Sucrose Complex 400 MG in 0.9 % Sodium Chloride 250 ML IVPB ONE (09:33)
--- NOTE | 2018-12-23 10:34 | Cardiothoracic Progress Note ---
Date of Encounter: 12/23/18 Time of Encounter: 10:33 - Assessment and plan (1) Malignant neoplasm of upper lobe, right bronchus or lung Current Visit: Yes Status: Acute The assessment and plan as outlined above was discussed with the patient and/or family members who expressed understanding and agreement. All questions were answered. no changes. replace k (2) Hypertension Current Visit: No Status: Chronic The assessment and plan as outlined above was discussed with the patient and/or family members who expressed understanding and agreement. All questions were answered. stable Qualifiers: Hypertension type: essential hypertension (3) Hypokalemia Current Visit: No Status: Chronic The assessment and plan as outlined above was discussed with the patient and/or family members who expressed understanding and agreement. All questions were answered. replace k today Vital Signs, Last 4 Hours Temp Pulse Resp BP Pulse Ox 12/23/18 08:00 88 12/23/18 07:53 18 97 12/23/18 07:39 98.3 F 76 18 131/89 Oxgyen Flow Rate Oxygen Flow Rate (LPM) 0 Clinical Data, last 8 Hours Output, Chest Tube Drainage 0 Amount [Right] Weight 12/21/18 12/22/18 12/23/18 23:59 23:59 23:59 Weight 96.162 kg 97.9 kg - Physical Examination General: Conversant, No Apparent Distress, Well developed HEENT: Atraumatic, Normocephaly Neck: No JVD Cardiac: Reg Rate and Rhythm, Normal S1 and S2 Incision: No signs of infection, Dry/intact dressing Chest tubes: Minimal drainage, Air leak Lungs: Normal Breath Sounds Neuro: Alert and responsive, No focal deficits noted, Cranial nerves intact, Motor nerves intact Abdomen: Soft, Non-tender, Other (flatus this am ) Extremities: No Edema - Labs 12/22/18 01:28 12/23/18 05:22 Lab Results, Last 24 hours 12/23/18 05:22 Sodium 142 Potassium 3.9 Chloride 109 H Carbon Dioxide 23 BUN 18 Creatinine 0.89 Glucose 134 H Calcium 8.3 L - Imaging Chest Xray: image reviewed Consult Discharge Plan - Plan Referrals: Marco Devine MD [Partnered Physician] - Marco Camejo DO [Primary Care Provider] -
[2018-12-23] MEDS: *HR* HYDROcodone/Acet 5/325 mg TABLET PO PRN (17:50)
[2018-12-24] MEDS: Ipratropium/Albuterol Neb 3 ML IH SCH ×6 (00:10→20:39)
[2018-12-24] MEDS: Ketorolac 15 MG/ML VIAL IVP SCH ×4 (00:38→18:28)
[2018-12-24] MEDS: *HR* Heparin 5,000 UNIT/ML VIAL SQ SCH ×3 (06:28→20:57)
[2018-12-24] MEDS: Gabapentin 300 MG CAPSULE PO SCH ×3 (08:40→20:56)
[2018-12-24] MEDS: amLODIPine 5 MG TABLET PO SCH (08:41)
[2018-12-24] MEDS: Metoprolol XL (24 HR) Succ 25 MG TAB.ER.24H PO SCH (08:41)
[2018-12-24] MEDS: Sennosides/Docusate Sodium TABLET PO SCH ×2 (08:41→20:56)
[2018-12-24] MEDS: Aspirin Enteric Coated 81 MG Tablet PO SCH (08:41)
--- NOTE | 2018-12-24 09:22 | Cardiothoracic Progress Note ---
Date of Encounter: 12/24/18 Time of Encounter: 09:21 - Assessment and plan (1) Malignant neoplasm of upper lobe, right bronchus or lung Current Visit: Yes Status: Acute The assessment and plan as outlined above was discussed with the patient and/or family members who expressed understanding and agreement. All questions were answered. no changes. (2) Hypertension Current Visit: No Status: Chronic The assessment and plan as outlined above was discussed with the patient and/or family members who expressed understanding and agreement. All questions were answered. stable Qualifiers: Hypertension type: essential hypertension (3) Hypokalemia Current Visit: No Status: Chronic The assessment and plan as outlined above was discussed with the patient and/or family members who expressed understanding and agreement. All questions were answered. lab in am Vital Signs, Last 4 Hours Temp Pulse Resp BP Pulse Ox 12/24/18 07:58 16 94 12/24/18 07:26 98.3 F 76 18 130/96 96 Oxgyen Flow Rate Oxygen Flow Rate (LPM) 0 Clinical Data, last 8 Hours Output, Chest Tube Drainage 20 Amount [Right] Weight 12/22/18 12/23/18 12/24/18 23:59 23:59 23:59 Weight 97.9 kg 99.2 kg - Physical Examination General: Conversant, No Apparent Distress, Well developed, Well nourished HEENT: Atraumatic, Normocephaly Cardiac: Reg Rate and Rhythm, Normal S1 and S2 Incision: No signs of infection, Dry/intact dressing Chest tubes: Minimal drainage, Air leak, Other (decreasing air leak ) Lungs: Normal Breath Sounds Neuro: Alert and responsive, No focal deficits noted, Cranial nerves intact Vascular: Normal capillary refill Abdomen: Soft, Non-tender, Other (no flatus or bm ) Extremities: No Edema - Labs 12/22/18 01:28 12/23/18 05:22 - Imaging Chest Xray: image reviewed Consult Discharge Plan - Plan Referrals: Marco Devine MD [Partnered Physician] - Marco Camejo DO [Primary Care Provider] -
[2018-12-24] MEDS ORDERED: Ibuprofen 200 MG TABLET PO PRN (20:41)
[2018-12-25] MEDS: Ipratropium/Albuterol Neb 3 ML IH SCH ×4 (00:17→11:28)
[2018-12-25] MEDS: Ketorolac 15 MG/ML VIAL IVP SCH ×3 (00:25→11:35)
[2018-12-25 01:17] LABS: BUN/Creatinine Ratio 20 (6-26); Blood Urea Nitrogen 18 mg/dL (8-23); Calcium 8.4 mg/dL (8.6-10.3); Carbon Dioxide 23 mEq/L (23-29); Chloride 105 mEq/L (98-107); Glucose 105 mg/dL (70-105); Magnesium 2.2 mg/dL (1.6-2.6); Osmolality,Calculated 284 (280-300); Potassium 4.3 mEq/L (3.5-5.1); Sodium 136 mEq/L (136-145); eGFR For African Americans > 60 (> 60); eGFR For Non-African Americans > 60 (> 60)
[2018-12-25] MEDS: *HR* Heparin 5,000 UNIT/ML VIAL SQ SCH ×2 (06:32→13:12)
[2018-12-25] MEDS: Sennosides/Docusate Sodium TABLET PO SCH (07:40)
[2018-12-25] MEDS: Aspirin Enteric Coated 81 MG Tablet PO SCH (07:40)
[2018-12-25] MEDS: Gabapentin 300 MG CAPSULE PO SCH (07:40)
[2018-12-25] MEDS: Metoprolol XL (24 HR) Succ 25 MG TAB.ER.24H PO SCH (07:41)
[2018-12-25] MEDS: amLODIPine 5 MG TABLET PO SCH (07:41)
[2018-12-25 11:46] VITALS: BP 128/87
--- NOTE | 2018-12-25 13:23 | Discharge Summary ---
Orders not resulted at time of discharge: Pending orders 12/21/18 11:08 Surgical Pathology [PTH] Stat 12/21/18 12:29 Surgical Pathology [PTH] Routine Date of Encounter: 12/25/18 Time of Encounter: 13:21 - Discharge Diagnosis (1) Malignant neoplasm of upper lobe, right bronchus or lung Priority: Primary Status: Acute Comments: none (2) Hypertension Priority: Secondary Status: Chronic Comments: none Qualifiers: Hypertension type: essential hypertension Qualified Code(s): I10 - Essential (primary) hypertension (3) Hypokalemia Priority: Secondary Status: Chronic Comments: resolved - Hospital Course Hospital course: Mr. Ravi is a 68 year old male - Time Spent with Patient Total time spent providing and/or coordinating discharge services: - Discharge Medications Prescriptions: No Action Umeclidinium Brm/Vilanterol Tr [Anoro Ellipta 62.5-25 Mcg INH] 1 puff IH DAILY Folic Acid 1 mg PO DAILY Metoprolol Succinate [Toprol Xl] 25 mg PO DAILY Albuterol Sulfate [Proventil Inhaler] 2 puff IH Q4-6H PRN PRN Reason: Shortness Of Breath Gabapentin [Neurontin] 300 mg PO BID Lisinopril/Hydrochlorothiazide [Zestoretic 20-12.5 mg Tablet] 1 tab PO DAILY amLODIPine [Norvasc] 10 mg PO DAILY Lovastatin 40 mg PO HS Cholecalciferol (D-3) [Vitamin D] 4,000 unit PO DAILY Aspirin [Lo-Dose Aspirin EC] 81 mg PO DAILY Methotrexate [Otrexup] 7.5 mg PO FR Home Medications: Aspirin [Lo-Dose Aspirin EC] 81 mg PO DAILY 09/14/16 [History] Cholecalciferol (D-3) [Vitamin D] 4,000 unit PO DAILY 09/14/16 [History] Lovastatin 40 mg PO HS 09/14/16 [History] Methotrexate [Otrexup] 7.5 mg PO FR 09/14/16 [History] amLODIPine [Norvasc] 10 mg PO DAILY 09/14/16 [History] Folic Acid 1 mg PO DAILY 06/13/17 [History] Metoprolol Succinate [Toprol Xl] 25 mg PO DAILY 06/13/17 [History] Umeclidinium Brm/Vilanterol Tr [Anoro Ellipta 62.5-25 Mcg INH] 1 puff IH DAILY 06/13/17 [History] Albuterol Sulfate [Proventil Inhaler] 2 puff IH Q4-6H PRN 12/21/18 [History] Gabapentin [Neurontin] 300 mg PO BID 12/21/18 [History] Lisinopril/Hydrochlorothiazide [Zestoretic 20-12.5 mg Tablet] 1 tab PO DAILY 12/21/18 [History] Allergies/Adverse Reactions: Allergy/AdvReac Type Severity Reaction Status Date / Time ranitidine [From Zantac] Allergy Hives Verified 12/21/18 18:07 Date of admission: 12/21/18 13:48 Primary care physician: Marco Camejo Procedure(s) Performed: bronchoscopy, right robotic upper lobectomy, lymph node dissection Discharging clinician: Marco Devine Anticipated date of discharge: 12/25/18 Physical Examination Vital Signs, Last 4 Hours Temp Pulse Resp BP Pulse Ox 12/25/18 11:44 97.9 F 84 18 128/87 12/25/18 11:29 18 98 General: Conversant, No Apparent Distress, Well developed, Well nourished HEENT: Atraumatic, Normocephaly, Trachea midline, Other Cardiac: Reg Rate and Rhythm, Normal S1 and S2 Lungs: Normal Breath Sounds Neuro: Alert and responsive, No focal deficits noted, Cranial nerves intact, Motor nerves intact Vascular: Pulse deficit Abdomen: Soft, Non-tender, Other (bm yesterday and today) Extremities: No Clubbing, No Edema - Patient Status Disposition: Home, Self-Care Condition: Good Functional capacity at discharge: independent ambulation Overall status at discharge: patient is progressing back to baseline - Discharge Instructions Follow Up With: Marco Devine MD [Partnered Physician] - Marco Camejo DO [Primary Care Provider] - 01/04/19 12:00 pm - Diet and Activity Activity: other (change gauze every other day. no driving if taking pain medications ) Diet: advance to your usual diet
== END 2018-12-25 14:02 | disposition home or self-care (01) | DRG 164 ==
LOC: SAMDAY 08:13 → 2NNU 13:48
PROVIDERS: ADMIT Thoracic Surgery (Cardiothoracic Vascular Surgery); ATTEND Thoracic Surgery (Cardiothoracic Vascular Surgery)